=== PATIENT | male | born 1965 | race African-American/Black ===

== ENCOUNTER 2017-03-24 02:16 | Emergency (ER) | payer OTHER ==
[~2017-03-24] VITALS: Ht 180.3 cm; Wt 82.0 kg
[~2017-03-24 02:16] MED LIST: AMLO10TA80 PO; BENZ0.5T3 PO; FLUP5TAB2 PO; KEPP500 PO; PHEN100C4 PO; RISP2TAB22 PO; RISP3 PO
[2017-03-24 03:54] LABS: CARBON DIOXIDE 28 mEq/L (21-32); CHLORIDE 105 mEq/L (98-107); TROPONIN I < 0.02 ng/mL (0.00-0.04)
[2017-03-24 04:35] LABS: HEMATOCRIT. 44.3 % (42.0-52.0); HEMOGLOBIN. 15.7 g/dL (14.0-18.0); MEAN CORPUSCULAR HEMOGLOBIN 31.7 pg (28.0-32.0); MEAN CORPUSCULAR VOLUME 89.4 fL (80.0-94.0); MEAN PLATELET VOLUME 9.5 fl (7.4-10.4); PLATELET 139 x1000/uL (130-400); RED BLOOD CELL COUNT 4.95 mill/uL (4.7-6.1); RED CELL DISTRIBUTION WIDTH 13.8 % (11.6-14.6)
[2017-03-24 05:24] LABS: PLATELET ESTIMATE NORMAL
[2017-03-24 05:27] VITALS: BP 160/100
== END 2017-03-24 05:38 | disposition home or self-care (01) ==
LOC: ER 02:16
DX: R07.2 Precordial pain (principal); I10 Essential (primary) hypertension
CPT/HCPCS: 36415; 71010; 80053; 83690; 84484; 85025; 85379; 93005; 99285; Z7610

== ENCOUNTER 2017-11-27 12:06 | Emergency (ER) | payer OTHER ==
[~2017-11-27] VITALS: Ht 170.2 cm; Wt 62.0 kg
[~2017-11-27 12:06] MED LIST changes: +BENZ1TAB7 PO; +FAMO20TA8 PO; +FOLI-43 PO; +METO25TA6 PO; +OMEP20TA2 PO; +RISP4 PO
[2017-11-27] MEDS ORDERED: SODIUM CHLORIDE 0.9% 500 ML IV ONE (14:00)
[2017-11-27 17:11] LABS: CHLORIDE 103 mEq/L (98-107)
[2017-11-27 17:16] LABS: ETHANOL BLOOD < 10 mg/dL
[2017-11-27 17:20] LABS: BASOPHILS % 0.5 % (0.0-2.0); EOSINOPHILS % 0.4 % (0.0-5.0); HEMATOCRIT. 45.2 % (42.0-52.0); HEMOGLOBIN. 16.4 g/dL (14.0-18.0); LYMPHOCYTES % 14.4 % (20.0-50.0); MEAN CORPUSCULAR HEMOGLOBIN 32.6 pg (28.0-32.0); MEAN CORPUSCULAR VOLUME 89.9 fL (80.0-94.0); MEAN PLATELET VOLUME 9.4 fl (7.4-10.4); MONOCYTES % 4.3 % (2.0-8.0); NEUTROPHILS % 80.4 % (40.0-76.0); PLATELET 162 x1000/uL (130-400); RED BLOOD CELL COUNT 5.03 mill/uL (4.7-6.1); RED CELL DISTRIBUTION WIDTH 13.5 % (11.6-14.6)
[2017-11-27 17:34] LABS: VALPROIC ACID < 3.0 ug/mL (50-100)
[2017-11-27] MEDS ORDERED: PHENYTOIN SODIUM EXTENDED 100MG CAPSULE PO ONE (17:45)
[2017-11-27 18:05] VITALS: BP 140/76
== END 2017-11-27 18:00 | disposition home or self-care (01) ==
LOC: ER 12:14
DX: G40.909 Epilepsy, unspecified, not intractable, without status epilepticus (principal); R73.9 Hyperglycemia, unspecified; E86.0 Dehydration; D72.810 Lymphocytopenia; I10 Essential (primary) hypertension; Z91.19 Patient's noncompliance with other medical treatment and regimen
CPT/HCPCS: 36415; 80053; 80165; 80185; 82542; 82962; 83036; 85025; 93005; 96360; 96361; 99285; G0482; J7040